=== PATIENT | female | born 1945 | race Caucasian/White ===

== ENCOUNTER → 2017-01-11 | Outpatient (CLI) | payer MEDICARE ==
[~2017-01-11] MED LIST: ASPI81TA2 PO; IOHEXOL 240 MG/ML 50ML VIAL. ONE; IOHEXOL 300 MG/ML 75 ML VIAL. IV ONE; LISI10TA2 PO
[2017-01-11 09:07] LABS: CREATININE 0.9 mg/dL (0.6-1.0); GFR 61.4
--- NOTE | 2017-01-11 11:59 | RAD ---
PROCEDURE CT abdomen pelvis with oral and intravenous contrast. HISTORY Left lower quadrant pain. Palpable lump on left side. TECHNIQUE After administration of oral and intravenous contrast, 75 milliliters Omnipaque 300, CT of the abdomen pelvis was performed. Exposure: One or more of the following individualized dose reduction techniques were utilized for this examination: 1. Automated exposure control. 2. Adjustment of the mA and/or kV according to patient size. 3. Use of iterative reconstruction technique. COMPARISON None available. FINDINGS Images of lower chest demonstrate a large retrocardiac hernia. The orientation of herniated stomach, incompletely visualized, raises possibility of organoaxial volvulus. The liver demonstrates presence of several small, subcentimeter low-density lesions, not adequately characterized on this examination. Spleen, pancreas, gallbladder, and bilateral adrenal glands are unremarkable. Bilateral kidneys enhance symmetrically. Coarse calcification is seen involving the junction of the pancreatic body and tail. No bowel obstruction or inflammation is appreciated. No free air or free fluid is seen in the abdomen or pelvis. Urinary bladder is unremarkable. No inguinal or ventral hernia is identified. Aortic atherosclerosis is seen. There is grade 2 spondylolisthesis at L5-S1 from pars defects. IMPRESSION 1. No acute abnormality identified in the abdomen or pelvis. 2. There is a large retrocardiac hernia containing herniated stomach. Orientation of the stomach raises possibility of organo-axial volvulus. There is no evidence of obstruction as oral contrast is seen within the small bowel. Electronically signed by: Owen Lucas MD (Jan 11, 2017 11:57:30)
== END | disposition home or self-care (01) ==
LOC: CT 08:28
PROVIDERS: ATTEND Family Medicine
DX: I10 Essential (primary) hypertension (principal); K46.9 Unspecified abdominal hernia without obstruction or gangrene; I70.0 Atherosclerosis of aorta; M43.17 Spondylolisthesis, lumbosacral region; J44.9 Chronic obstructive pulmonary disease, unspecified; J45.909 Unspecified asthma, uncomplicated; D68.318 Other hemorrhagic disorder due to intrinsic circulating anticoagulants, antibodies, or inhibitors; R60.9 Edema, unspecified; F17.200 Nicotine dependence, unspecified, uncomplicated
CPT/HCPCS: 36415; 74177; 82565; 84520; Q9966; Q9967

== ENCOUNTER → 2018-01-09 | Outpatient (CLI) | payer MEDICARE ==
[~2018-01-09] MED LIST changes: +ASPI-630 PO; -ASPI81TA2 PO; -IOHEXOL 240 MG/ML 50ML VIAL. ONE; -IOHEXOL 300 MG/ML 75 ML VIAL. IV ONE
--- NOTE | 2018-01-10 09:59 | RAD ---
DATE: 01/09/2018 EXAM: MAMMO CALLI SCREENING BILATERAL HISTORY: Routine screening COMPARISON: 07/25/2016, 08/01/2016. This study was interpreted with the benefit of Computerized Aided Detection (CAD). The breast parenchyma is heterogeneously dense, which could reduce sensitivity of mammography. Breast parenchyma level C. FINDINGS: 2-D and 3-D tomosynthesis imaging was performed in CC and MLO projections. There has been an interval breast biopsy in the upper outer quadrant of the right breast with a biopsy marker evident. Reportedly the results were benign. The fibroglandular densities in both breasts are quite dense and heterogeneous. No new or enlarging breast densities are seen. There are scattered microcalcifications in both breasts. No suspicious microcalcifications have developed. IMPRESSION: 1. Postbiopsy changes in the right. 2. Otherwise stable mammograms without evidence of malignancy. BI-RADS CATEGORY: 2 BENIGN FINDING(S) RECOMMENDED FOLLOW-UP: 12M 12 MONTH FOLLOW-UP PQRS compliance statement: Patient information was entered into a reminder system with a target due date for the next mammogram. Mammography is a sensitive method for finding small breast cancers, but it does not detect them all and is not a substitute for careful clinical examination. A negative mammogram does not negate a clinically suspicious finding and should not result in delay in biopsying a clinically suspicious abnormality. "Our facility is accredited by the [employer] Mammography Program."
== END | disposition home or self-care (01) ==
LOC: MAMMO 12:55
PROVIDERS: ATTEND Specialist
DX: Z12.31 Encounter for screening mammogram for malignant neoplasm of breast (principal)
CPT/HCPCS: 77063; 77067

== ENCOUNTER 2018-07-04 09:08 | Observation (INO) | payer MEDICARE ==
[~2018-07-04] VITALS: Ht 162.6 cm; Wt 61.2 kg
--- NOTE | 2018-07-04 09:21 | EKG ---
[address] [address] Test Date: 2018-07-04 Test Time: 09:12:03 Pat Name: SHANT DIEGO Department: Room: Gender: F Foot Doctor: : 1945 Requested By: OSMAN QIU Order Number: [id number] Reading MD: Pavan Mcdonnell Measurements Intervals [place] Rate: 69 P: 5 VT: 148 QRS: 8 QRSD: 126 T: 80 QT: 446 QTc: 480 Interpretive Statements SINUS RHYTHM NON SPECIFIC INTRAVENTRICULAR BLOCK ABNORMAL ECG Electronically Signed On 07-09-2018 11:45:25 CDT by Pavan Mcdonnell
[2018-07-04] MEDS ORDERED: NITROGLYCERIN SUBLINGUAL 0.4 MG BOTTLE OF 25. SL PRN (09:30)
[2018-07-04 09:39] LABS: BASO # 0.1 x10^3/uL (0.0-0.2); BASO % 1 % (0-3); EOS # 0.1 x10^3/uL (0.0-0.7); EOS % 2 % (0-3); HEMATOCRIT 44.5 % (36.0-47.0); HEMOGLOBIN 14.9 g/dL (12.0-15.5); LYMPH # 2.4 x10^3/uL (1.0-4.8); LYMPH % 39 % (24-48); MEAN CORPUSCULAR HEMOGLOBIN 30 pg (25-35); MEAN CORPUSCULAR HGB CONC 33 g/dL (31-37); MEAN CORPUSCULAR VOLUME 89 fL (79-100); MONO # 0.7 x10^3/uL (0.0-1.1); MONO % 12 % (0-9); NEUT % 47 % (31-73); PLATELET COUNT 253 x10^3/uL (140-400); RED BLOOD COUNT 5.01 x10^6/uL (3.50-5.40); RED CELL DISTRIBUTION WIDTH 14.3 % (11.5-14.5); WHITE BLOOD COUNT 6.3 x10^3/uL (4.0-11.0)
--- NOTE | 2018-07-04 09:45 | RAD ---
Exam: AP portable chest History: Chest pain and palpitations. Comparison: None. Findings: The heart and mediastinal structures are within normal limits for size. Lungs are without infiltrate. No pleural effusion or pneumothorax is identified. Median sternotomy wires are present. Aortic atherosclerosis is seen. Moderate hiatal hernia is seen. Impression: 1. No acute cardiopulmonary process. Electronically signed by: Owen Lucas MD (07/04/2018 9:41 AM) [place] [id number]
[2018-07-04 09:58] LABS: ALBUMIN 4.2 g/dL (3.4-5.0); ALBUMIN/GLOBULIN RATIO 1.3 (1.0-1.7); CALCIUM 9.7 mg/dL (8.5-10.1); CREATININE 0.8 mg/dL (0.6-1.0); GFR 70.1; MAGNESIUM 2.5 mg/dL (1.8-2.4); TOTAL BILIRUBIN 0.8 mg/dL (0.2-1.0); TOTAL PROTEIN 7.4 g/dL (6.4-8.2)
[2018-07-04 10:00] LABS: POTASSIUM 4.3 mmol/L (3.5-5.1)
--- NOTE | 2018-07-04 10:25 | PHYS DOC ---
Past History Past Medical History: Asthma, CAD, High Cholesterol, Hypertension Past Surgical History: Coronary Bypass Surgery, Hysterectomy, Other Alcohol Use: None Drug Use: None Adult General Chief Complaint Chief Complaint: CHEST PAIN HPI HPI Patient is a 72 year old female who presents with complaining of chest pain. Patient complaining of sudden onset of substernal chest pain since 8:30 today as a constant pain with radiation to her neck and lower jaw as a discomfort feeling like alternating in her chest associated with shortness of breath and lightheadedness and near syncope without nausea and focal neuro deficit. Patient rated her pain 6/10 and states the pain getting force with movement. Patient had history of CABG in 2001 and seen her dial refinisher about 5 months ago. Patient had history of hypertension and dyslipidemia and family history of coronary artery disease and denies smoking and having history of diabetes mellitus. Patient took aspirin at home today. Review of Systems Review of Systems Constitutional: Denies fever or chills [] Eyes: Denies change in visual acuity, redness, or eye pain [] HENT: Denies nasal congestion or sore throat [] Respiratory: Denies cough or shortness of breath [] Cardiovascular: No additional information not addressed in HPI [] GI: Denies abdominal pain, nausea, vomiting, bloody stools or diarrhea [] : Denies dysuria or hematuria [] Musculoskeletal: Denies back pain or joint pain [] Integument: Denies rash or skin lesions [] Neurologic: Denies headache, focal weakness or sensory changes [] Endocrine: Denies polyuria or polydipsia [] All other systems were reviewed and found to be within normal limits, except as documented in this note. Current Medications Current Medications Current Medications Medications (Trade) Dose Ordered Sig/Idania Start Time Stop Time Status Last Admin Dose Admin Nitroglycerin (Nitrostat) 0.4 mg PRN Q5MIN PRN 07/04/18 09:30 07/05/18 09:29 07/04/18 09:30 0.4 MG Allergies Allergies Allergies Coded Allergies Type Severity Reaction Last Updated Verified No Known Drug Allergies 01/11/17 No Physical Exam Physical Exam Constitutional: Well developed, well nourished, mild distress, non-toxic appearance. [] HENT: Normocephalic, atraumatic Eyes: PERRLA, EOMI, conjunctiva normal, no discharge. [] Neck: Normal range of motion, no tenderness, supple, no stridor. [] Cardiovascular:Heart rate regular rhythm, no murmur [] Lungs & Thorax: Bilateral breath sounds clear to auscultation [] Abdomen: Bowel sounds normal, soft, no tenderness, no masses, no pulsatile masses. [] Skin: Warm, dry, no erythema, no rash. [] Back: No tenderness, no CVA tenderness. [] Extremities: No tenderness, no cyanosis, no clubbing, ROM intact, no edema. [] Neurologic: Alert and oriented X 3, normal motor function, normal sensory function, no focal deficits noted. [] Psychologic: Affect anxious, judgement normal, mood normal. [] Current Patient Data Vital Signs Vital Signs Date Time Temp Pulse Resp B/P (MAP) Pulse Ox O2 Delivery O2 Flow Rate FiO2 07/04/18 09:47 62 16 150/75 (100) 98 Room Air 07/04/18 09:10 98.3 Lab Results Laboratory Tests Test 07/04/18 09:25 White Blood Count 6.3 x10^3/uL (4.0-11.0) Red Blood Count 5.01 x10^6/uL (3.50-5.40) Hemoglobin 14.9 g/dL (12.0-15.5) Hematocrit 44.5 % (36.0-47.0) Mean Corpuscular Volume 89 fL (79-100) Mean Corpuscular Hemoglobin 30 pg (25-35) Mean Corpuscular Hemoglobin Concent 33 g/dL (31-37) Red Cell Distribution Width 14.3 % (11.5-14.5) Platelet Count 253 x10^3/uL (140-400) Neutrophils (%) (Auto) 47 % (31-73) Lymphocytes (%) (Auto) 39 % (24-48) Monocytes (%) (Auto) 12 % (0-9) H Eosinophils (%) (Auto) 2 % (0-3) Basophils (%) (Auto) 1 % (0-3) Neutrophils # (Auto) 3.0 x10^3uL (1.8-7.7) Lymphocytes # (Auto) 2.4 x10^3/uL (1.0-4.8) Monocytes # (Auto) 0.7 x10^3/uL (0.0-1.1) Eosinophils # (Auto) 0.1 x10^3/uL (0.0-0.7) Basophils # (Auto) 0.1 x10^3/uL (0.0-0.2) Prothrombin Time 9.9 SEC (9.4-11.4) Prothrombin Time INR 1.0 (0.9-1.1) Sodium Level 140 mmol/L (136-145) Potassium Level 4.3 mmol/L (3.5-5.1) Chloride Level 105 mmol/L (98-107) Carbon Dioxide Level 23 mmol/L (21-32) Anion Gap 12 (6-14) Blood Urea Nitrogen 15 mg/dL (7-20) Creatinine 0.8 mg/dL (0.6-1.0) Estimated GFR (Cockcroft-Gault) 70.1 BUN/Creatinine Ratio 19 (6-20) Glucose Level 93 mg/dL (70-99) Calcium Level 9.7 mg/dL (8.5-10.1) Magnesium Level 2.5 mg/dL (1.8-2.4) H Total Bilirubin 0.8 mg/dL (0.2-1.0) Aspartate Amino Transferase (AST) 34 U/L (15-37) Alanine Aminotransferase (ALT) 35 U/L (14-59) Alkaline Phosphatase 78 U/L (46-116) Creatine Kinase 105 U/L (26-192) Troponin I Quantitative < 0.017 ng/mL (0-0.055) AM-Cue-P-Type Natriuretic Peptide 175 pg/mL (0-124) H Total Protein 7.4 g/dL (6.4-8.2) Albumin 4.2 g/dL (3.4-5.0) Albumin/Globulin Ratio 1.3 (1.0-1.7) Lipase 189 U/L (73-393) EKG EKG EKG interpreted by me. EKG at 0912 showed normal sinus rhythm at rate of 69, nonspecific intraventricular block, no acute ST and T-wave abnormalities[] Radiology/Procedures Radiology/Procedures [address] [address] IMAGING REPORT Signed PATIENT: SHANT DIEGO ACCOUNT: [id number] : 1945 LOCATION: ER AGE: 72 SEX: F EXAM STATUS: REG ER ORD. PHYSICIAN: OSMAN QIU MD REASON: chest pain PROCEDURE: PORTABLE CHEST 1V Exam: AP portable chest History: Chest pain and palpitations. Comparison: None. Findings: The heart and mediastinal structures are within normal limits for size. Lungs are without infiltrate. No pleural effusion or pneumothorax is identified. Median sternotomy wires are present. Aortic atherosclerosis is seen. Moderate hiatal hernia is seen. Impression: 1. No acute cardiopulmonary process. Electronically signed by: Owen Rosenbaum MD (07/04/2018 9:41 AM) [facility] DICTATED AND SIGNED BY: OWEN ROSENBAUM MD DATE: 07/04/18939 CC: OSMAN QIU MD; NEERAJ JOHNSON MD ~ Course & Med Decision Making Course & Med Decision Making Pertinent Labs and Imaging studies reviewed. (See chart for details) Evaluation of patient in ER showed 72-year-old female patient with multiple cardiac risk factors complaining of chest pain for the last couple of hours. Patient was anxious in ER and treated with nitroglycerin and documented on feels better. EKG and labs was unremarkable. Because of multiple cardiac risk factors plan to admit patient for chest pain evaluation. Dr. Nicole accepted admission at 1011. Dragon Disclaimer Dragon Disclaimer This electronic medical record was generated, in whole or in part, using a voice recognition dictation system. Departure Departure: Impression: Primary Impression: Anxiety Disposition: ADMITTED INPATIENT (at 1016) Admitting Physician: Other (Dr. Nicole accepted admission at 1011) Condition: IMPROVED Referrals: NEERAJ JOHNSON MD (PCP) OSMAN QIU MD Jul 04, 2018 10:25
[2018-07-04] MEDS ORDERED: LORazepam 2 MG/ML VIAL IV ONE (10:45)
[2018-07-04 11:45] VITALS: BP 125/82
[2018-07-04] MEDS ORDERED: FLUT50DI IH (12:40)
[2018-07-04] MEDS ORDERED: OMEG1CAP38 PO (12:40)
[2018-07-04] MEDS ORDERED: MULT1TAB52 PO (12:40)
[2018-07-04] MEDS ORDERED: FLUT1DIS3 IH (12:40)
[2018-07-04] MEDS ORDERED: SIMV80TA7 PO (12:40)
--- NOTE | 2018-07-04 15:59 | PDOC1 ---
History of Present Illness History of Present Illness 72-year-old female brought to the emergency department earlier today by her spouse with fluttering in her chest and jaw pain. Patient has history of coronary artery disease she follows with Dr. Zendejas. She 's had stents in the past and had a two-vessel CABG in 2001, last saw dna sequencing associate approximately 5 months ago. Patient states that this morning after making breakfast and while getting ready to exercise walking through the house she developed a sudden onset of fluttering in her upper chest with severe jaw pain. She denies any chest pain dyspnea diaphoresis nausea or dizziness, the discomfort caused her to have to sit down and she called out to her spouse for assistance. She reports that those symptoms persisted until she received nitroglycerin sublingually times one after arriving to the emergency department. In the emergency department her EKG was reportedly normal sinus rhythm with a nonspecific intraventricular block no ST or T changes. Portable chest x-ray was unremarkable and first set of cardiac enzymes negative. Due to her medical history and symptoms she was admitted to the telemetry floor for observation and cardiology evaluation. I find the patient lying in bed staring out the window in no apparent distress. She is very pleasant and reports that her chief complaint symptoms have not returned. She has remained asymptomatic and denies any current questions or complaints. Chief Complaint: CHEST PAIN Allergies: Coded Allergies: No Known Drug Allergies (Unverified , 01/11/17) Past Medical History Cardiac: CAD, HTN, hyperipidemia Pulmonary: Asthma Past Surgical History: CABG (two-vessel, 2001), Hysterectomy Family History: No pertinent hx Past Social History Smoke: No Alcohol: none Drugs: None Lives: with Family Domestic Violence: Neg Review of Systems Review Of Systems Fourteen system , review of systems has been reviewed. See HPI for pertinent positives and negative responses, other [place] all other systems are negative, non pertinent or non contributory Constitutional: No: Fever, Chills, Sweats Eyes: No: Decreased vision, Eye Pain ENT: No: Ear pain, Nose pain Respiratory: No: Cough, Shortness of breath, SOB with excertion, Wheezing Cardiovascular: No: Palpitations, Paroxysmal Noc. Dyspnea, Edema Gastrointestinal: No: Nausea, Vomiting, Abdominal Pain Genitourinary: No: Dysuria, Flank Pain Musculoskeletal: No: Gait Disturbance, Joint Swelling SKIN: No: No Rashes, Diaphoretic Neurological: No: Headaches, Impaired Coord/balance, Memory Loss Medications Current Medications Nitroglycerin (Nitrostat) 0.4 mg PRN Q5MIN PRN SL CP RATING > 1/10 Last administered on 07/04/18at 09:30; Start 07/04/18 at 09:30; Stop 07/05/18 at 09:29 Lorazepam (Ativan) 0.5 mg 1X ONCE IV Last administered on 07/04/18at 10:32; Start 07/04/18 at 10:45; Stop 07/04/18 at 10:46; Status DC Active Scripts Active Reported Flovent 50MCG Diskus (Fluticasone Propionate) 50 Mcg Disk.w.dev 50 Mcg IH DAILY LAST DOSE GIVEN: DATE: TIME: NEXT DOSE DUE: DATE: TIME: Baxter 3 Fish Oil Softgel (Baxter-3 Fatty Acids/Fish Oil) 1 Each Capsule.dr 1 Each PO DAILY LAST DOSE GIVEN: DATE: TIME: NEXT DOSE DUE: DATE: TIME: Multivitamins (Multivitamin) 1 Each Tablet 1 Tab PO DAILY LAST DOSE GIVEN: DATE: TIME: NEXT DOSE DUE: DATE: TIME: Advair 250-50 Diskus (Fluticasone/Salmeterol) 1 Each Disk.w.dev 1 Puff IH DAILY LAST DOSE GIVEN: DATE: TIME: NEXT DOSE DUE: DATE: TIME: Simvastatin 80 Mg Tablet 1 Tab PO QHS LAST DOSE GIVEN: DATE: TIME: NEXT DOSE DUE: DATE: TIME: Aspirin 81 Mg Tab.chew 81 Mg PO DAILY LAST DOSE GIVEN: DATE: TIME: NEXT DOSE DUE: DATE: TIME: Lisinopril 10 Mg Tablet 1 Tab PO DAILY LAST DOSE GIVEN: DATE: TIME: NEXT DOSE DUE: DATE: TIME: Exam Vital Signs Vital Signs Date Time Temp Pulse Resp B/P (MAP) Pulse Ox O2 Delivery O2 Flow Rate FiO2 07/04/18 11:45 97.6 58 20 125/82 (96) 98 Room Air General Appearance: Alert, Oriented X3, Cooperative, No acute distress HEENT: Atraumatic, PERRLA, EOMI, Mucous membr. moist/pink Respiratory: Clear to auscultation, Normal air movement Heart: Normal S1, Normal S2, No murmurs Cardiac: CAD, HTN, hyperipidemia Abdominal: Soft, No tenderness Extremities: No clubbing, No cyanosis, No edema Neuro: Normal speech, Strength at 5/5 X4 ext, Normal tone, Cranial nerves 3-12 NL Psych/Mental Status: Mental status NL, Mood NL Assessment/Plan Assessment/Plan Chest pain equivalent with history of coronary artery disease History of asthma, hypertension, hyperlipidemia We will continue home meds follow cardiac enzymes cardiology has been consulted. COURSE Allergies Coded Allergies Type Severity Reaction Last Updated Verified No Known Drug Allergies 01/11/17 No Laboratory Tests Test 07/04/18 09:25 07/04/18 13:29 White Blood Count 6.3 x10^3/uL (4.0-11.0) Red Blood Count 5.01 x10^6/uL (3.50-5.40) Hemoglobin 14.9 g/dL (12.0-15.5) Hematocrit 44.5 % (36.0-47.0) Mean Corpuscular Volume 89 fL (79-100) Mean Corpuscular Hemoglobin 30 pg (25-35) Mean Corpuscular Hemoglobin Concent 33 g/dL (31-37) Red Cell Distribution Width 14.3 % (11.5-14.5) Platelet Count 253 x10^3/uL (140-400) Neutrophils (%) (Auto) 47 % (31-73) Lymphocytes (%) (Auto) 39 % (24-48) Monocytes (%) (Auto) 12 % (0-9) Eosinophils (%) (Auto) 2 % (0-3) Basophils (%) (Auto) 1 % (0-3) Neutrophils # (Auto) 3.0 x10^3uL (1.8-7.7) Lymphocytes # (Auto) 2.4 x10^3/uL (1.0-4.8) Monocytes # (Auto) 0.7 x10^3/uL (0.0-1.1) Eosinophils # (Auto) 0.1 x10^3/uL (0.0-0.7) Basophils # (Auto) 0.1 x10^3/uL (0.0-0.2) Prothrombin Time 9.9 SEC (9.4-11.4) Prothromb Time International Ratio 1.0 (0.9-1.1) Sodium Level 140 mmol/L (136-145) Potassium Level 4.3 mmol/L (3.5-5.1) Chloride Level 105 mmol/L (98-107) Carbon Dioxide Level 23 mmol/L (21-32) Anion Gap 12 (6-14) Blood Urea Nitrogen 15 mg/dL (7-20) Creatinine 0.8 mg/dL (0.6-1.0) Estimated GFR (Cockcroft-Gault) 70.1 BUN/Creatinine Ratio 19 (6-20) Glucose Level 93 mg/dL (70-99) Calcium Level 9.7 mg/dL (8.5-10.1) Magnesium Level 2.5 mg/dL (1.8-2.4) Total Bilirubin 0.8 mg/dL (0.2-1.0) Aspartate Amino Transf (AST/SGOT) 34 U/L (15-37) Alanine Aminotransferase (ALT/SGPT) 35 U/L (14-59) Alkaline Phosphatase 78 U/L (46-116) Creatine Kinase 105 U/L (26-192) Troponin I Quantitative < 0.017 ng/mL (0-0.055) 0.020 ng/mL (0-0.055) YW-Glk-E-Type Natriuretic Peptide 175 pg/mL (0-124) Total Protein 7.4 g/dL (6.4-8.2) Albumin 4.2 g/dL (3.4-5.0) Albumin/Globulin Ratio 1.3 (1.0-1.7) Lipase 189 U/L (73-393) Current Medications Medications (Trade) Dose Ordered Sig/Idania Route PRN Reason Start Time Stop Time Status Last Admin Dose Admin Nitroglycerin (Nitrostat) 0.4 mg PRN Q5MIN PRN SL CP RATING > 1/10 07/04/18 09:30 07/05/18 09:29 07/04/18 09:30 Lorazepam (Ativan) 0.5 mg 1X ONCE IV 07/04/18 10:45 07/04/18 10:46 DC 07/04/18 10:32 Orders Procedure Category Date Status Time Continuous Pulse ER 07/04/18 Transmitted Oximetry 09:17 Saline Lock ER 07/04/18 Transmitted 09:17 Oxygen Delivery ER 07/04/18 Transmitted 09:17 Cbc W Autodiff LAB 07/04/18 Complete 09:17 Troponin I LAB 07/04/18 Complete 09:17 Protime LAB 07/04/18 Complete 09:17 Creatine Kinase LAB 07/04/18 Complete 09:17 Lipase LAB 07/04/18 Complete 09:17 Magnesium LAB 07/04/18 Complete 09:17 Nt-Pro Bnp LAB 07/04/18 Complete 09:17 Portable Chest 1v RAD 07/04/18 Resulted 09:17 Nitroglycerin PHA 07/04/18 In Process Sublingual (Nitrostat) 09:30 12 Lead Ekg EKG 07/04/18 Complete 09:17 Comprehensive LAB 07/04/18 Complete Metabolic Panel 09:17 Pulse Oximetry: KAYLAH 07/04/18 In Process Standing Order 09:17 [place] Order ADT 07/04/18 Transmitted 10:16 Code Status CODE 07/04/18 Transmitted 10:16 Vital Signs, Per KAYLAH 07/04/18 In Process Protocol 10:16 Cardiac DIET 07/04/18 Transmitted Breakfast Troponin I LAB 07/04/18 Complete 13:16 Troponin I LAB 07/04/18 Logged 16:16 Lorazepam (Ativan) PHA 07/04/18 Complete 10:45 Admit Orders ADT 07/04/18 Transmitted Consult Physician By CONS 07/04/18 Transmitted Name 12:55 Vital Signs Date Time Temp Pulse Resp B/P (MAP) Pulse Ox O2 Delivery O2 Flow Rate FiO2 07/04/18 11:45 97.6 58 20 125/82 (96) 98 Room Air JOSEFA DIEZ DO Jul 04, 2018 15:59
[2018-07-04 16:27] VITALS: BP 113/71
--- NOTE | 2018-07-04 16:46 | NUR ---
Pt arrived on unit via gurney accompanied by ems and spouse. Pt vitals, head to toe assessment, past medical hx, and current meds documented. Pt given unit routines.
--- NOTE | 2018-07-04 18:05 | CONS ---
DATE OF CONSULTATION: 07/04/2018 REASON FOR CONSULTATION: Chest pain. HISTORY OF PRESENT ILLNESS: The patient is a pleasant 72-year-old woman with past medical history of coronary artery disease, status post 2-vessel bypass remotely who follows with my partner, Dr. Cat, for routine Cardiology care. She has been in her usual state of health and reports over the last several months approximately about every 6 weeks or so has had episodes of palpitations and lightheadedness, which prompted her to rest from her activity. These episodes usually occur when she is active such as vacuuming her house. Unfortunately, today, she had a very more severe episode, which started with some palpitations in her chest, subsequently led to severe chest pain in her torso as well as jaw pain, which prompted her to seek medical attention. Upon arrival to the ER, she was noted to have normal blood pressure and vital signs and was given nitroglycerin, Ativan, which helped to resolve some of her symptoms. Her initial enzymes were unremarkable. Her initial EKG demonstrated sinus rhythm with left bundle branch block. PAST MEDICAL HISTORY: 1. Coronary artery disease, status post 2-vessel bypass. 2. Hypertension. 3. Dyslipidemia. SOCIAL HISTORY: The patient denies any alcohol, tobacco or illicit drug use. FAMILY HISTORY: Noncontributory. ALLERGIES: No known drug allergies. CURRENT CARDIOVASCULAR MEDICATIONS: As follows: 1. Fish oil 1000 mg daily. 2. Aspirin 81 mg daily. 3. Lisinopril 10 mg daily. 4. Simvastatin 80 mg p.o. at bedtime. REVIEW OF SYSTEMS: Negative for 10 out of 14 systems reviewed, unless otherwise mentioned above in HPI. PHYSICAL EXAMINATION: VITAL SIGNS: Afebrile, 66, 20, blood pressure 170/99 upon initial arrival with repeat blood pressures throughout the day within normal limits. GENERAL: She is alert and oriented, in mild distress related to her significant anxiety from the event earlier. HEAD AND NECK: Unremarkable. She is a thin-appearing with a normal BMI. HEART: Regular rate and rhythm without murmurs, rubs or gallops. LUNGS: Clear to auscultation bilaterally. ABDOMEN: Soft, nontender, nondistended without any murmurs, rubs or gallops. EXTREMITIES: No clubbing, cyanosis or edema; 2+ radial and dorsalis pedis pulses. NEUROLOGIC: No focal deficits. MUSCULOSKELETAL: No trauma. DIAGNOSTIC STUDIES: Cardiac enzymes negative x 2. EKG demonstrates sinus rhythm of left bundle branch block. BNP is normal at 175. Basic metabolic panel and CBC are within normal limits. IMPRESSION: 1. Atypical chest pain. 2. Coronary artery disease, status post 2-vessel bypass. 3. Hypertension. Different diagnosis is broad. This could be related to palpitations leading to possible spasm versus tachyarrhythmia leading to some discomfort. She did also have an episode of hypertensive urgency. RECOMMENDATIONS: I had a long discussion with the patient regarding various approaches to treatment and evaluation. Given her risk factors and significant discomfort, we will plan to rule out any occult ischemia with a treadmill myocardial perfusion study. We will also obtain a 2-week event monitor after which we will consider an outpatient implantable loop recorder as necessary depending on her symptoms. Thank you for this consultation. BHAVANA ORANTES MD DR: KARLA/tricia JOB#: [id number] / [id number]
[2018-07-04 18:51] VITALS: BP 113/71
[2018-07-04] MEDS: BUDESONIDE 0.5 MG/2 ML NEBU NEB SCH (20:00)
[2018-07-04] MEDS: ALBUTEROL SULFATE 2.5 MG/3 ML NEBU. NEB SCH (20:00)
[2018-07-04] MEDS ORDERED: SIMVASTATIN 40 MG TABLET. PO SCH (21:00)
[2018-07-04 22:04] VITALS: BP 110/70
[2018-07-05 05:04] VITALS: BP 132/77
[2018-07-05] MEDS: ALBUTEROL SULFATE 2.5 MG/3 ML NEBU. NEB SCH ×3 (05:35→15:15)
[2018-07-05] MEDS: BUDESONIDE 0.5 MG/2 ML NEBU NEB SCH (08:00)
[2018-07-05] MEDS ORDERED: MULTIVITAMIN with MINERAL TABLET. PO SCH (09:00)
[2018-07-05] MEDS ORDERED: FLUTICASONE 50MCG/NASAL SPRAY 16GM BOTTLE. NS SCH (09:00)
[2018-07-05] MEDS ORDERED: NON FORMULARY ITEM (Fluticasone/Salmeterol (Advair 250-50 Diskus) 1 PUFF) IH SCH (09:00)
[2018-07-05] MEDS ORDERED: NON FORMULARY ITEM (Fluticasone Propionate (Flovent 50MCG Diskus) 50 MCG) IH SCH (09:00)
[2018-07-05] MEDS ORDERED: OMEGA-3 FATTY ACIDS/FISH OIL 1,000 MG CAPSULE. PO SCH (09:00)
[2018-07-05] MEDS ORDERED: LISINOPRIL 10 MG TABLET PO SCH (09:00)
[2018-07-05] MEDS ORDERED: ASPIRIN 81 MG TAB.CHEW PO SCH (09:00)
--- NOTE | 2018-07-05 09:25 | PDOC ---
PROGRESS NOTES Diagnosis Problem Problems Medical Problems: (1) Anxiety Status: Acute (2) Chest pain Status: Acute Assessment Problems Medical Problems: (1) Anxiety Status: Acute (2) Chest pain Status: Acute 1. chest pain - [place] ruled out. MPI this am. continue medical therapy and RF reduction. 2. Coronary artery disease, status post 2-vessel bypass. Continue medical mgmt. home if stress test is normal. 3. Hypertension.- controlled. last echo with LVEF 55%. 4. hyperlipidemia, continue statin, check lipids. 5. palpitations - no significant arrhythmias. consider MCT as outpatient. Subjective better this am. no chest pain. no dyspnea. seen in stress lab. Objective Vital Signs Date Time Temp Pulse Resp B/P (MAP) Pulse Ox O2 Delivery O2 Flow Rate FiO2 07/05/18 07:40 Room Air 07/05/18 05:04 97.6 57 20 132/77 (95) 99 Intake and Output 07/05/18 07:00 Intake Total 700 ml Output Total 600 ml Balance 100 ml Intake Oral 700 ml Output Urine Total 600 ml # Voids 2 Abdomen: Normal bowel sounds, Soft, No tenderness Heart: Regular rate, Normal S1, Normal S2 Extremities: No cyanosis, No edema, Normal pulses General: Alert, Oriented X3, Cooperative, No acute distress HEENT: Atraumatic, EOMI Lungs: Clear to auscultation, Normal air movement Neuro: Normal speech, Strength at 5/5 X4 ext Psych/Mental Status: Mental status NL, Mood NL Review of Relevant I have reviewed the following items cynthia (where applicable) has been applied. Labs Laboratory Tests Test 07/04/18 09:25 07/04/18 13:29 07/04/18 16:25 White Blood Count 6.3 x10^3/uL (4.0-11.0) Red Blood Count 5.01 x10^6/uL (3.50-5.40) Hemoglobin 14.9 g/dL (12.0-15.5) Hematocrit 44.5 % (36.0-47.0) Mean Corpuscular Volume 89 fL (79-100) Mean Corpuscular Hemoglobin 30 pg (25-35) Mean Corpuscular Hemoglobin Concent 33 g/dL (31-37) Red Cell Distribution Width 14.3 % (11.5-14.5) Platelet Count 253 x10^3/uL (140-400) Neutrophils (%) (Auto) 47 % (31-73) Lymphocytes (%) (Auto) 39 % (24-48) Monocytes (%) (Auto) 12 % (0-9) Eosinophils (%) (Auto) 2 % (0-3) Basophils (%) (Auto) 1 % (0-3) Neutrophils # (Auto) 3.0 x10^3uL (1.8-7.7) Lymphocytes # (Auto) 2.4 x10^3/uL (1.0-4.8) Monocytes # (Auto) 0.7 x10^3/uL (0.0-1.1) Eosinophils # (Auto) 0.1 x10^3/uL (0.0-0.7) Basophils # (Auto) 0.1 x10^3/uL (0.0-0.2) Prothrombin Time 9.9 SEC (9.4-11.4) Prothromb Time International Ratio 1.0 (0.9-1.1) Sodium Level 140 mmol/L (136-145) Potassium Level 4.3 mmol/L (3.5-5.1) Chloride Level 105 mmol/L (98-107) Carbon Dioxide Level 23 mmol/L (21-32) Anion Gap 12 (6-14) Blood Urea Nitrogen 15 mg/dL (7-20) Creatinine 0.8 mg/dL (0.6-1.0) Estimated GFR (Cockcroft-Gault) 70.1 BUN/Creatinine Ratio 19 (6-20) Glucose Level 93 mg/dL (70-99) Calcium Level 9.7 mg/dL (8.5-10.1) Magnesium Level 2.5 mg/dL (1.8-2.4) Total Bilirubin 0.8 mg/dL (0.2-1.0) Aspartate Amino Transf (AST/SGOT) 34 U/L (15-37) Alanine Aminotransferase (ALT/SGPT) 35 U/L (14-59) Alkaline Phosphatase 78 U/L (46-116) Creatine Kinase 105 U/L (26-192) Troponin I Quantitative < 0.017 ng/mL (0-0.055) 0.020 ng/mL (0-0.055) 0.019 ng/mL (0-0.055) UA-Laz-U-Type Natriuretic Peptide 175 pg/mL (0-124) Total Protein 7.4 g/dL (6.4-8.2) Albumin 4.2 g/dL (3.4-5.0) Albumin/Globulin Ratio 1.3 (1.0-1.7) Lipase 189 U/L (73-393) Medications Current Medications Nitroglycerin (Nitrostat) 0.4 mg PRN Q5MIN PRN SL CP RATING > 1/10 Last administered on 07/04/18at 09:30; Start 07/04/18 at 09:30; Stop 07/05/18 at 09:29 Lorazepam (Ativan) 0.5 mg 1X ONCE IV Last administered on 07/04/18at 10:32; Start 07/04/18 at 10:45; Stop 07/04/18 at 10:46; Status DC Lisinopril (Prinivil) 10 mg DAILY PO ; Start 07/05/18 at 09:00 Aspirin (Children'S Aspirin) 81 mg DAILY PO ; Start 07/05/18 at 09:00 Non-Formulary Medication (Fluticasone Propionate (Flovent 50MCG Diskus)) 50 mcg DAILY IH ; Start 07/05/18 at 09:00; Stop 07/05/18 at 09:00; Status DC Non-Formulary Medication (Fluticasone/ Salmeterol (Advair 250-50 Diskus)) 1 puff DAILY IH ; Start 07/05/18 at 09:00; Stop 07/05/18 at 09:00; Status DC Multivitamins/ Calcium (Thera-M Plus) 1 tab DAILY PO ; Start 07/05/18 at 09:00 Fish Oil (Fish Oil) 1,000 mg DAILY PO ; Start 07/05/18 at 09:00 Simvastatin (Zocor) 80 mg QHS PO Last administered on 07/04/18at 20:39; Start at 21:00 Budesonide (Pulmicort) 0.5 mg RTBID NEB ; Start 07/04/18 at 20:00 Albuterol Sulfate (Ventolin) 2.5 mg RTQID NEB ; Start 07/04/18 at 20:00 Fluticasone Propionate (Flonase) 2 spray DAILY NS ; Start 07/05/18 at 09:00 Active Scripts Active Reported Flovent 50MCG Diskus (Fluticasone Propionate) 50 Mcg Disk.w.dev 50 Mcg IH DAILY LAST DOSE GIVEN: DATE: TIME: NEXT DOSE DUE: DATE: TIME: [place] 3 Fish Oil Softgel ([place]-3 Fatty Acids/Fish Oil) 1 Each Capsule.dr 1 Each PO DAILY LAST DOSE GIVEN: DATE: TIME: NEXT DOSE DUE: DATE: TIME: Multivitamins (Multivitamin) 1 Each Tablet 1 Tab PO DAILY LAST DOSE GIVEN: DATE: TIME: NEXT DOSE DUE: DATE: TIME: Advair 250-50 Diskus (Fluticasone/Salmeterol) 1 Each Disk.w.dev 1 Puff IH DAILY LAST DOSE GIVEN: DATE: TIME: NEXT DOSE DUE: DATE: TIME: Simvastatin 80 Mg Tablet 1 Tab PO QHS LAST DOSE GIVEN: DATE: TIME: NEXT DOSE DUE: DATE: TIME: Aspirin 81 Mg Tab.chew 81 Mg PO DAILY LAST DOSE GIVEN: DATE: TIME: NEXT DOSE DUE: DATE: TIME: Lisinopril 10 Mg Tablet 1 Tab PO DAILY LAST DOSE GIVEN: DATE: TIME: NEXT DOSE DUE: DATE: TIME: Vitals/I & O Vital Sign - Last 24 Hours 07/04/18 07/04/18 07/04/18 07/04/18 09:30 09:30 09:47 10:18 Pulse 59 60 62 57 Resp 16 16 16 B/P (MAP) 170/99 170/79 (109) 150/75 (100) 136/86 (103) Pulse Ox 100 98 99 O2 Delivery Room Air Room Air Room Air 07/04/18 07/04/18 07/04/18 07/04/18 10:47 11:45 16:27 18:51 Temp 97.6 97.6 97.6 Pulse 54 58 66 66 Resp 16 20 20 18 B/P (MAP) 122/74 (90) 125/82 (96) 113/71 (85) 113/71 (85) Pulse Ox 100 98 97 97 O2 Delivery Room Air Room Air Room Air Room Air 07/04/18 07/04/18 07/05/18 07/05/18 19:20 22:04 05:04 07:40 Temp 97.5 97.6 Pulse 52 57 Resp 20 20 B/P (MAP) 110/70 (83) 132/77 (95) Pulse Ox 96 99 O2 Delivery Room Air Room Air Room Air Room Air Intake and Output 07/04/18 07/04/18 07/05/18 15:00 23:00 07:00 Intake Total 200 ml 500 ml 0 ml Output Total 600 ml Balance 200 ml 500 ml -600 ml RANDI MUELLER APRN Jul 05, 2018 09:25
[2018-07-05 11:23] VITALS: BP 100/63
--- NOTE | 2018-07-05 13:13 | RAD ---
MR#: [id number] Date of Study: 07/05/2018 Ordering Physician: BHAVANA ORANTES, Referring Physician: WILLIAMS ORTIZ Tech: RT Jessica Howell) (N) APPROVED REPORT Test Type: Exercise Stress Nurse/Tech: RT Dante (Jossie) (N) Test Indications: chest pain Cardiac History: CABG 2 bypass 2002 Medications: see EHR Medical History: see EHR Resting ECG: SR DRWP no acute changes Resting Heart Rate: 59 bpm Resting Blood Pressure: 121/66mmHg Pretest Chest Pain: None Nurse/Tech Notes Consent: The procedure was explained to the patient in lay terms. Informed consent was witnessed. Isaiah eout was entered into [employer]. History and Stress Test performed by RT Jessica Howell) (N) POST EXERCISE Reason for Termination: Fatigue, Dyspnea, Reached target heart rate Target HR: Yes Max HR: 125 bpm 85% of Maximum Predicted HR: 146 bpm Exercise duration: 7:30 min:sec, 3 Stage Exercise capacity: 10METs Max Blood Pressure: 160/74mmHg Chest Pain: No. INTERPRETATION Stress EKG Conclusion: Resting EKG shows sinus rhythm with nonspecific ST-T wave changes. The stress EKG showed no significant changes from baseline. No EKG evidence of stress-induced ischemia. Imaging Protocol IMAGE PROTOCOL: Rest Tc-99m/stress Tc-99m 1 day Rest: Stress: Viability: Radiopharm.Tc99m [id number] Sestamibi Dose10.6mCi 34.2mCi Duration 20min. 15min. Img Date 07/05/2018 07/05/2018 Inj-Img [id number]. 60min. Post-Injection Exercise: 1 minute Rest Admin Site:IV - Right AntecubitalAdministrator: RT Dante (Jossie)(N) Stress Admin Site: IV - Right AntecubitalAdministrator: RT Jessica Howell)(N) STRESS DATA End Diast. Vol.59.0mlAv. Heart Rate74.0bpm LVEDV index BSA1.0mlCardiac Output0.1L/min End Syst. Vol.14.0mlCO Index BSA3.3L/min LVESV index BSA0.0mlMyocardial Nttg250.0g Eject. Ilpdergn03.0% Stress Rates Pk. Fill Rate3.22EDV/secLVtime Pk. Fill 226.67msec Pk. Empty Rate4.70ESV/secLVtime Pk. Ccxgx730.31msec 1/3 Pk. Fill1.29EDV/sec Stress Scores Regional WT1.00Summed WT10.00 Regional WM0.00Summed WM6.00 LV Perfusion The stress scans show a septal apical defect. The rest scans show a septal apical defect. 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 No significant reversible ischemia is prese nt. Wall Motion Left ventricular systolic function appears normal. Ejection fraction is greater than 70%. 3 times a d ay is 0.86. LV Perf. Quant 17 Seg. SSS12.00 17 Seg. SRS15.00 17 Seg. SDS1.00 Stress Defect Extent (% LAD)29.40Rest Defect Extent (% LAD)44.40Rev. Defect Extent (% LAD)1.30 Stress Defect Extent (% LCX) 0.00Rest Defect Extent (% LCX)12.50Rev. Defect Extent (% LCX)0.00 Stress Defect Extent (% RCA)26.70Rest Defect Extent (% RCA)18.90Rev. Defect Extent (% RCA)6.70 Stress Defect Extent (% KALYN)22.00Rest Defect Extent (% KALYN)34.10Rev. Defect Extent (% KALYN)1.70 Conclusion 1. Good exercise tolerance with the patient walking for 7 minutes and 30 seconds on a Max protocol. 2. No chest pain reported with exertion. 3. Abnormal baseline EKG but no EKG evidence of stressed induced ischemia. 4. Nuclear imaging shows a septal apical infarct but no significant reversible ischemia. 5. LV systolic function is greater than 70% with no regional wall motion abnormalities. 6. Moderate to moderately low risk treadmill nuclear stress test. Signed by : Julien Martinez MD Electronically Approved : 07/05/2018 13:12:00
--- NOTE | 2018-07-05 15:40 | PDOC3 ---
Discharge Summary Visit Information Date of Admission: Jul 04, 2018 Date of Discharge: Jul 05, 2018 Admitting Diagnosis: chest pain atypical, history of coronary artery disease, Final Diagnosis Problems Medical Problems: (1) Anxiety Status: Acute (2) Chest pain Status: Acute Problems: (1) Chest pain (2) Anxiety (3) Hyperlipidemia (4) Hypertension (5) Atypical chest pain (6) History of coronary artery disease Brief Hospital Course Allergies Allergies Coded Allergies Type Severity Reaction Last Updated Verified No Known Drug Allergies 01/11/17 No Vital Signs Vital Signs Date Time Temp Pulse Resp B/P (MAP) Pulse Ox O2 Delivery O2 Flow Rate FiO2 07/05/18 11:23 97.3 68 20 100/63 (75) 99 Room Air Lab Results Laboratory Tests Test 07/04/18 09:25 07/04/18 13:29 07/04/18 16:25 White Blood Count 6.3 x10^3/uL (4.0-11.0) Red Blood Count 5.01 x10^6/uL (3.50-5.40) Hemoglobin 14.9 g/dL (12.0-15.5) Hematocrit 44.5 % (36.0-47.0) Mean Corpuscular Volume 89 fL (79-100) Mean Corpuscular Hemoglobin 30 pg (25-35) Mean Corpuscular Hemoglobin Concent 33 g/dL (31-37) Red Cell Distribution Width 14.3 % (11.5-14.5) Platelet Count 253 x10^3/uL (140-400) Neutrophils (%) (Auto) 47 % (31-73) Lymphocytes (%) (Auto) 39 % (24-48) Monocytes (%) (Auto) 12 % (0-9) Eosinophils (%) (Auto) 2 % (0-3) Basophils (%) (Auto) 1 % (0-3) Neutrophils # (Auto) 3.0 x10^3uL (1.8-7.7) Lymphocytes # (Auto) 2.4 x10^3/uL (1.0-4.8) Monocytes # (Auto) 0.7 x10^3/uL (0.0-1.1) Eosinophils # (Auto) 0.1 x10^3/uL (0.0-0.7) Basophils # (Auto) 0.1 x10^3/uL (0.0-0.2) Prothrombin Time 9.9 SEC (9.4-11.4) Prothromb Time International Ratio 1.0 (0.9-1.1) Sodium Level 140 mmol/L (136-145) Potassium Level 4.3 mmol/L (3.5-5.1) Chloride Level 105 mmol/L (98-107) Carbon Dioxide Level 23 mmol/L (21-32) Anion Gap 12 (6-14) Blood Urea Nitrogen 15 mg/dL (7-20) Creatinine 0.8 mg/dL (0.6-1.0) Estimated GFR (Cockcroft-Gault) 70.1 BUN/Creatinine Ratio 19 (6-20) Glucose Level 93 mg/dL (70-99) Calcium Level 9.7 mg/dL (8.5-10.1) Magnesium Level 2.5 mg/dL (1.8-2.4) Total Bilirubin 0.8 mg/dL (0.2-1.0) Aspartate Amino Transf (AST/SGOT) 34 U/L (15-37) Alanine Aminotransferase (ALT/SGPT) 35 U/L (14-59) Alkaline Phosphatase 78 U/L (46-116) Creatine Kinase 105 U/L (26-192) Troponin I Quantitative < 0.017 ng/mL (0-0.055) 0.020 ng/mL (0-0.055) 0.019 ng/mL (0-0.055) UF-Fvw-C-Type Natriuretic Peptide 175 pg/mL (0-124) Total Protein 7.4 g/dL (6.4-8.2) Albumin 4.2 g/dL (3.4-5.0) Albumin/Globulin Ratio 1.3 (1.0-1.7) Lipase 189 U/L (73-393) Brief Hospital Course 72-year-old female brought to the emergency department yesterday by her spouse with fluttering in her chest and jaw pain. Patient has history of coronary artery disease she follows with Dr. Zendejas. She 's had stents in the past and had a two-vessel CABG in 2001. Patient reports yesterday morning with minimal activity she developed sudden onset of fluttering in her upper chest with severe jaw pain. Those symptoms persisted until she received nitroglycerin sublingually times one after arriving to the emergency department. In the emergency department her EKG was reportedly normal sinus rhythm with a nonspecific intraventricular block no ST or T changes. Portable chest x-ray was unremarkable and 3 sets of cardiac enzymes negative. Due to her medical history and symptoms she was admitted to the telemetry floor for observation and cardiology evaluation. Nuclear stress test this morning was unremarkable, she will follow-up as an outpatient for echocardiogram and with cardiology for further outpatient workup. I find the patient lying in bed with her spouse at the bedside in no apparent distress. She is very pleasant and reports that her chief complaint symptoms have not returned. She has remained asymptomatic and denies any current questions or complaints, she is wanting to go home. Her vitals are been stable and labs unremarkable. General Appearance: Alert, Oriented X3, Cooperative, No acute distress HEENT: Atraumatic, PERRLA, EOMI, Mucous membr. moist/pink Respiratory: Clear to auscultation, Normal air movement Heart: Normal S1, Normal S2, No murmurs Cardiac: CAD, HTN, hyperipidemia Abdominal: Soft, No tenderness Extremities: No clubbing, No cyanosis, No edema Neuro: Normal speech, Strength at 5/5 X4 ext, Normal tone, Cranial nerves 3-12 NL Psych/Mental Status: Mental status NL, Mood NL Discharge Information Condition at Discharge: Stable Follow Up: Weeks Disposition/Orders: D/C to Home Dischare Medications Current Medications Nitroglycerin (Nitrostat) 0.4 mg PRN Q5MIN PRN SL CP RATING > 1/10 Last administered on 07/04/18at 09:30; Start 07/04/18 at 09:30; Stop 07/05/18 at 09:29 ; Status DC Lorazepam (Ativan) 0.5 mg 1X ONCE IV Last administered on 07/04/18at 10:32; Start 07/04/18 at 10:45; Stop 07/04/18 at 10:46; Status DC Lisinopril (Prinivil) 10 mg DAILY PO ; Start 07/05/18 at 09:00 Aspirin (Children'S Aspirin) 81 mg DAILY PO Last administered on 07/05/18at 11: 23; Start 07/05/18 at 09:00 Non-Formulary Medication (Fluticasone Propionate (Flovent 50MCG Diskus)) 50 mcg DAILY IH ; Start 07/05/18 at 09:00; Stop 07/05/18 at 09:00; Status DC Non-Formulary Medication (Fluticasone/ Salmeterol (Advair 250-50 Diskus)) 1 puff DAILY IH ; Start 07/05/18 at 09:00; Stop 07/05/18 at 09:00; Status DC Multivitamins/ Calcium (Thera-M Plus) 1 tab DAILY PO Last administered on at 11:23; Start 07/05/18 at 09:00 Fish Oil (Fish Oil) 1,000 mg DAILY PO Last administered on 07/05/18at 11:23; Start 07/05/18 at 09:00 Simvastatin (Zocor) 80 mg QHS PO Last administered on 07/04/18at 20:39; Start at 21:00 Budesonide (Pulmicort) 0.5 mg RTBID NEB ; Start 07/04/18 at 20:00 Albuterol Sulfate (Ventolin) 2.5 mg RTQID NEB ; Start 07/04/18 at 20:00 Fluticasone Propionate (Flonase) 2 spray DAILY NS Last administered on at 11:23; Start 07/05/18 at 09:00 Active Scripts Active Reported Flovent 50MCG Diskus (Fluticasone Propionate) 50 Mcg Disk.w.dev 50 Mcg IH DAILY LAST DOSE GIVEN: DATE: TIME: NEXT DOSE DUE: DATE: TIME: [place] 3 Fish Oil Softgel ([place]-3 Fatty Acids/Fish Oil) 1 Each Capsule.dr 1 Each PO DAILY LAST DOSE GIVEN: DATE: TIME: NEXT DOSE DUE: DATE: TIME: Multivitamins (Multivitamin) 1 Each Tablet 1 Tab PO DAILY LAST DOSE GIVEN: DATE: TIME: NEXT DOSE DUE: DATE: TIME: Advair 250-50 Diskus (Fluticasone/Salmeterol) 1 Each Disk.w.dev 1 Puff IH DAILY LAST DOSE GIVEN: DATE: TIME: NEXT DOSE DUE: DATE: TIME: Simvastatin 80 Mg Tablet 1 Tab PO QHS LAST DOSE GIVEN: DATE: TIME: NEXT DOSE DUE: DATE: TIME: Aspirin 81 Mg Tab.chew 81 Mg PO DAILY LAST DOSE GIVEN: DATE: TIME: NEXT DOSE DUE: DATE: TIME: Lisinopril 10 Mg Tablet 1 Tab PO DAILY LAST DOSE GIVEN: DATE: TIME: NEXT DOSE DUE: DATE: TIME: Problem Qualifiers (1) Chest pain: Chest pain type: other chest pain Qualified Codes: R07.89 - Other chest pain (2) Hyperlipidemia: Hyperlipidemia type: pure hypercholesterolemia Qualified Codes: E78.00 - Pure hypercholesterolemia, unspecified (3) Hypertension: Hypertension type: essential hypertension Qualified Codes: I10 - Essential ( primary) hypertension JOSEFA DIEZ DO Jul 05, 2018 15:40
--- NOTE | 2018-07-05 16:46 | NUR ---
Discharge Note: SHANT DIEGO [address] Discharge instructions and discharge home medications reviewed with patient and and a copy given. All questions have been answered and understanding verbalized. The following instructions and handouts were given: medications, follow up instructions, and educational handouts given. Discontinued lines and drains: peripheral IV discontinued with no complications. Patient discharged to home with via private vehicle.
== END 2018-07-05 16:30 | disposition home or self-care (01) ==
LOC: ER 09:08 → INTOOBSV 10:16 → 1 SOUTH 10:16
PROVIDERS: ADMIT Neuromusculoskeletal Medicine & OMM; ATTEND Neuromusculoskeletal Medicine & OMM
DX: R07.89 Other chest pain (principal); I16.0 Hypertensive urgency; E78.00 Pure hypercholesterolemia, unspecified; E78.5 Hyperlipidemia, unspecified; F41.9 Anxiety disorder, unspecified; I10 Essential (primary) hypertension; I25.10 Atherosclerotic heart disease of native coronary artery without angina pectoris; I44.7 Left bundle-branch block, unspecified; J45.909 Unspecified asthma, uncomplicated; Z82.49 Family history of ischemic heart disease and other diseases of the circulatory system; Z95.1 Presence of aortocoronary bypass graft; Z90.710 Acquired absence of both cervix and uterus; Z79.899 Other long term (current) drug therapy
CPT/HCPCS: 36415; 71045; 78452; 80053; 80061; 82550; 83690; 83735; 83880; 84484; 85025; 85610; 93005; 93017; 96374; 99285; A9500; G0378; J2060; 96376; G0379

== ENCOUNTER → 2019-02-21 | Outpatient (CLI) | payer MEDICARE ==
[~2019-02-21] MED LIST changes: +FLUT1DIS3 IH; +FLUT50DI IH; +MULT1TAB52 PO; +OMEG1CAP38 PO; +SIMV80TA17 PO
--- NOTE | 2019-02-21 16:19 | RAD ---
DATE: 02/21/2019 EXAM: MAMMO CALLI SCREENING BILATERAL HISTORY: Routine screening COMPARISON: 01/09/2018 This study was interpreted with the benefit of Computerized Aided Detection (CAD). Breast Density: HETERO The breast parenchyma is heterogenously dense, which could reduce sensitivity of mammography. Breast parenchyma level C. FINDINGS: 2-D and 3-D tomosynthesis imaging was performed in CC and MLO projections. A breast biopsy markers again noted laterally on the right. The fibroglandular tissues are quite dense and heterogeneous in the nodular pattern. There is a 2 cm smooth nodule in the medial aspect of the left breast which is unchanged. No new or enlarging breast densities are seen. There are scattered benign type calcifications. No suspicious microcalcifications have developed. IMPRESSION: Stable mammograms without evidence of malignancy. BI-RADS CATEGORY: 2 BENIGN FINDING(S) RECOMMENDED FOLLOW-UP: 12M 12 MONTH FOLLOW-UP PQRS compliance statement: Patient information was entered into a reminder system with a target due date for the next mammogram. Mammography is a sensitive method for finding small breast cancers, but it does not detect them all and is not a substitute for careful clinical examination. A negative mammogram does not negate a clinically suspicious finding and should not result in delay in biopsying a clinically suspicious abnormality. "Our facility is accredited by the [employer] Mammography Program."
== END | disposition home or self-care (01) ==
LOC: MAMMO 09:50
PROVIDERS: ATTEND Specialist
DX: Z12.31 Encounter for screening mammogram for malignant neoplasm of breast (principal); N64.89 Other specified disorders of breast
CPT/HCPCS: 77063; 77067

== ENCOUNTER → 2020-03-24 | Outpatient (CLI) | payer MEDICARE ==
[~2020-03-24] MED LIST changes: +MULT-445 PO; -MULT1TAB52 PO
--- NOTE | 2020-03-24 14:37 | RAD ---
DATE: 03/24/2020 10:55 AM EXAM: MAMMO CALLI SCREENING BILATERAL HISTORY: Screening COMPARISON: 08/01/2016, 01/09/2018 and 02/21/2019 Bilateral CC and MLO views of the breasts were performed. Bilateral breast tomosynthesis was performed in CC and MLO projections. This study was interpreted with the benefit of Computerized Aided Detection (CAD). FINDINGS: Breast Density: HETERO The breast parenchyma Is heterogeneously dense, which could reduce sensitivity of mammography. Breast parenchyma level C No suspicious masses, microcalcifications or architectural distortion is present to suggest malignancy in either breast. The visualized axillae are unremarkable. IMPRESSION: No mammographic evidence of malignancy. BI-RADS CATEGORY: 1 NEGATIVE RECOMMENDED FOLLOW-UP: 12M 12 MONTH FOLLOW-UP Annual screening mammography is recommended, unless clinically indicated sooner based on symptoms or change in physical exam. PQRS compliance statement: Patient information was entered into a reminder system with a target due date 03/25/2021 for the next mammogram. Mammography is a sensitive method for finding small breast cancers, but it does not detect them all and is not a substitute for careful clinical examination. A negative mammogram does not negate a clinically suspicious finding and should not result in delay in biopsying a clinically suspicious abnormality. "Our facility is accredited by the [employer] Mammography Program."
== END | disposition home or self-care (01) ==
LOC: MAMMO 10:43
PROVIDERS: ATTEND Specialist
DX: Z12.31 Encounter for screening mammogram for malignant neoplasm of breast (principal)
CPT/HCPCS: 77063; 77067

== ENCOUNTER → 2020-09-24 | Outpatient (CLI) | payer MEDICARE ==
--- NOTE | 2020-09-24 15:12 | RAD ---
EXAM: DUAL ENERGY X-RAY ABSORPTIOMETRY (DEXA). HISTORY: Postmenopausal screening. FINDINGS: The lowest measured T-score is -1.5 in the right total femur, based on a bone mineral densi ty of 0.771 g/cm^2. Refer to the worksheets for full detail. No comparison examinations are available. IMPRESSION: Low bone mass. Bone mineral density yields a T-score between -1.0 and -2.5. Fracture risk is increase d. FRAX was not calculated. METHODOLOGY: Dual energy x-ray absorptiometry was performed to measure bone mineral density. The foll owing analysis is based on the 2019 Official Positions of the International Society for Clinical Dens itometry: Measurements of the hips and the average of L1-L4 are preferred. When the spine and/or hip cannot be feasibly measured or interpreted, or in the setting of hyperparathyroidism, distal radial bone minera l density may be measured. The lumbar spine T-score is based on the average bone mineral density of L1-L4. In the setting of art ifact or anatomic abnormality, some lumbar levels may be excluded, and the remaining levels used for calculation. A single lumbar level is not used for diagnosis, and if only a single level is available for assessment, another anatomic site will be used to assign a diagnosis. The hip T-score is based on the bone mineral density measurement of the femoral neck or total proxima l femur of either side, whichever is lowest. Bilateral mean values are not used for diagnosis. The forearm T-score is derived from 33% of the distal radius of the nondominant forearm. For postmenopausal and perimenopausal women, and men age 50 or older, of all ethnic groups, T-scores are calculated through comparison of the current measurement with the NHANES III database standard fo r females aged 20-29 years. The lowest T-score of the evaluated anatomic sites is used to a ssign a diagnosis based on the World Health Organization densitometric classification. In premenopausal females and males younger than age 50, a Z-score is calculated based on population s pecific reference data for patient sex and self-reported ethnicity. Electronically signed by: Steve Bermudez MD (09/24/2020 3:10 PM) [id number]
== END ==
LOC: DXRAD 12:42
PROVIDERS: ATTEND Specialist
DX: M81.8 Other osteoporosis without current pathological fracture (principal); M85.9 Disorder of bone density and structure, unspecified
CPT/HCPCS: 77080

== ENCOUNTER → 2020-12-18 | Outpatient (CLI) | payer MEDICARE ==
[~2020-12-18] MED LIST changes: +LISI10TA16 PO; -LISI10TA2 PO
--- NOTE | 2020-12-18 14:49 | RAD ---
EXAM: Chest, 2 views. HISTORY: COPD. COMPARISON: 07/04/2018 FINDINGS: 2 views of the chest are obtained. There is no infiltrate, pleural effusion or pneumothorax . The heart is normal in size. There is evidence of median sternotomy and coronary artery bypass. The re is a coronary artery stent. There is a moderate hiatal hernia. IMPRESSION: No acute pulmonary finding. Electronically signed by: Stcaia Ayala MD (12/18/2020 2:47 PM) [id number]
== END ==
LOC: RAD 13:39
PROVIDERS: ATTEND Internal Medicine Critical Care Medicine
DX: J44.9 Chronic obstructive pulmonary disease, unspecified (principal); K44.9 Diaphragmatic hernia without obstruction or gangrene
CPT/HCPCS: 71046

== ENCOUNTER → 2021-03-04 | Outpatient (CLI) | payer MEDICARE ==
--- NOTE | 2021-03-04 14:57 | RAD ---
EXAM: Left knee, 3 views. HISTORY: Pain. COMPARISON: None. FINDINGS: 3 views of the left knee are obtained. There is medial compartment joint space narrowing wi th degenerative subchondral sclerosis and spurring. There is lucency along the articular aspect of th e medial femoral condyle which is likely projectional. No convincing osteochondral lesion is seen. Th ere is no significant joint effusion. IMPRESSION: 1. Moderate medial and mild lateral compartment osteoarthritis of the left knee. 2. No acute osseous finding. Electronically signed by: Stacia Ayala MD (03/04/2021 2:55 PM) [id number]
== END ==
LOC: DXRAD 14:08
PROVIDERS: ATTEND Physician Assistant
DX: M17.12 Unilateral primary osteoarthritis, left knee (principal)
CPT/HCPCS: 73562

== ENCOUNTER 2021-04-26 17:16 | Emergency (ER) | payer MEDICARE ==
[~2021-04-26] VITALS: Ht 165.1 cm; Wt 49.5 kg
[2021-04-26] MEDS ORDERED: IV NORMAL SALINE 1,000ML 1,000 ML IV ONE (18:15)
[2021-04-26 18:19] LABS: BASO # 0.1 x10^3/uL (0.0-0.2); BASO % 1 % (0-3); EOS # 0.2 x10^3/uL (0.0-0.7); EOS % 3 % (0-3); HEMATOCRIT 37.8 % (36.0-47.0); HEMOGLOBIN 12.5 g/dL (12.0-15.5); LYMPH # 1.6 x10^3/uL (1.0-4.8); LYMPH % 27 % (24-48); MEAN CORPUSCULAR HEMOGLOBIN 32 pg (25-35); MEAN CORPUSCULAR HGB CONC 33 g/dL (31-37); MEAN CORPUSCULAR VOLUME 96 fL (79-100); MONO # 0.6 x10^3/uL (0.0-1.1); MONO % 11 % (0-9); NEUT # 3.5 x10^3uL (1.8-7.7); NEUT % 58 % (31-73); PLATELET COUNT 263 x10^3/uL (140-400); RED BLOOD COUNT 3.95 x10^6/uL (3.50-5.40); RED CELL DISTRIBUTION WIDTH 14.3 % (11.5-14.5)
--- NOTE | 2021-04-26 18:20 | EKG ---
[address] [address] Test Date: 2021-04-26 Test Time: 18:12:55 Pat Name: SHANT DIEGO Department: Room: Gender: F [employer] Specialist: NORA : 1945 Requested By: KYLE JACINTO Order Number: [id number] Reading MD: Measurements Intervals Carpenter Rate: 62 P: 23 DE: 162 QRS: -2 QRSD: 128 T: 86 QT: 478 QTc: 488 Interpretive Statements SINUS RHYTHM LEFTWARD AXIS LEFT BUNDLE BRANCH BLOCK ABNORMAL ECG RI6.02 No previous ECG available for comparison
[2021-04-26 18:24] LABS: BILIRUBIN,URINE NEG (NEG); CLARITY,URINE CLEAR; COLOR,URINE YELLOW; GLUCOSE,URINE NEG (NEG)
[2021-04-26 18:25] LABS: NITRITE,URINE NEG (NEG); UROBILINOGEN,URINE 0.2 mg/dL (0.2 mg/dL)
[2021-04-26 18:27] LABS: BACTERIA,URINE FEW /HPF (0-FEW); RBC,URINE OCC /HPF (0-2); SQUAMOUS EPITHELIAL CELL,UR OCC /LPF
[2021-04-26 18:28] LABS: HYALINE CASTS, URINE MOD /HPF
[2021-04-26 18:31] LABS: CALCIUM 8.5 mg/dL (8.5-10.1); CREATININE 1.1 mg/dL (0.6-1.0); GFR 48.2; POTASSIUM 3.5 mmol/L (3.5-5.1)
[2021-04-26 18:37] LABS: ALBUMIN 3.6 g/dL (3.4-5.0); ALBUMIN/GLOBULIN RATIO 1.3 (1.0-1.7); TOTAL BILIRUBIN 0.3 mg/dL (0.2-1.0); TOTAL PROTEIN 6.3 g/dL (6.4-8.2)
[2021-04-26] MEDS ORDERED: FOSFOMYCIN TROMETHAMINE 3 GM PACKET PO ONE (19:00)
--- NOTE | 2021-04-26 19:43 | PHYS DOC ---
Past History Past Medical History: Asthma, CAD, High Cholesterol, Hypertension (KYLE JACINTO APRN) Past Surgical History: Coronary Bypass Surgery, Hysterectomy (KYLE JACINTO APRN) Alcohol Use: Occasionally Drug Use: None (KYLE JACINTO APRN) General Adult EDM: Chief Complaint: HYPOTENSION HPI: HPI: Patient is a 75-year-old female who presents with hypotension. Patient states "when I got up from a nap I took my blood pressure and it was low". "My has been to my blood pressure with 2 different machines at home and they both were running low in the 70s". states "now that I am thinking about it, on Monday she acted weird and has had some memory issues since then ". "She got up and said that everything looked weird and felt like the lights were very bright and her balance was off". Patient denies chest pain, shortness of breath. (KYLE JACINTO APRN) Review of Systems: Review of Systems: Constitutional: Denies fever or chills Eyes: Denies change in visual acuity HENT: Denies nasal congestion or sore throat Respiratory: Denies cough or shortness of breath Cardiovascular: Denies chest pain or edema GI: Denies abdominal pain, nausea, vomiting, bloody stools or diarrhea : Denies dysuria Musculoskeletal: Denies back pain or joint pain Integument: Denies rash Neurologic: Denies headache, focal weakness or sensory changes Endocrine: Denies polyuria or polydipsia Lymphatic: Denies swollen glands Psychiatric: Denies depression or anxiety (KYLE JACINTO APRN) Current Medications: Current Meds: Current Medications Medications (Trade) Dose Ordered Sig/Idania Start Time Stop Time Status Last Admin Dose Admin Fosfomycin Tromethamine (Monurol) 3 gm 1X ONCE 04/26/21 19:00 04/26/21 19:01 DC 04/26/21 19:13 3 GM Sodium Chloride 1,000 ml @ 1,000 mls/hr 1X ONCE 04/26/21 18:15 04/26/21 19:14 DC 04/26/21 18:08 1,000 MLS/HR (KYLE JACINTO APRN) Allergies: Allergies: Allergies Coded Allergies Type Severity Reaction Last Updated Verified No Known Drug Allergies 01/11/17 No (KYLE JACINTO APRN) Physical Exam: PE: Constitutional: Well developed, well nourished, no acute distress, non-toxic appearance. [] HENT: Normocephalic, atraumatic, bilateral external ears normal, oropharynx moist, no oral exudates, nose normal. [] Eyes: PERRLA, EOMI, conjunctiva normal, no discharge. [] Neck: Normal range of motion, no tenderness, supple, no stridor. [] Cardiovascular:Heart rate regular rhythm, no murmur [] Lungs & Thorax: Bilateral breath sounds clear to auscultation [] Abdomen: Bowel sounds normal, soft, no tenderness, no masses, no pulsatile masses. [] Skin: Warm, dry, no erythema, no rash. [] Back: No tenderness, no CVA tenderness. [] Extremities: No tenderness, no cyanosis, no clubbing, ROM intact, no edema. [] Neurologic: Alert and oriented X 3, normal motor function, normal sensory function, no focal deficits noted. [] Psychologic: Affect normal, judgement normal, mood normal. [] (KYLE JACINTO APRN) Current Patient Data: Labs: Laboratory Tests Test 04/26/21 17:58 04/26/21 18:00 Urine Collection Type Unknown Urine Color Yellow Urine Clarity Clear Urine pH 5.5 Urine Specific [place] 1.015 Urine Protein Neg (NEG-TRACE) Urine Glucose (UA) Neg mg/dL (NEG) Urine Ketones (Stick) Neg mg/dL (NEG) Urine Blood Trace (NEG) Urine Nitrite Neg (NEG) Urine Bilirubin Neg (NEG) Urine Urobilinogen Dipstick 0.2 mg/dL (0.2 mg/dL) Urine Leukocyte Esterase Small (NEG) Urine RBC Occ /HPF (0-2) Urine WBC 5-10 /HPF (0-4) Urine Squamous Epithelial Cells Occ /LPF Urine Transitional Epithelial Cells Occ /LPF Urine Renal Epithelial Cells Few /LPF Urine Bacteria Few /HPF (0-FEW) Urine Hyaline Casts Mod /HPF White Blood Count 6.0 x10^3/uL (4.0-11.0) Red Blood Count 3.95 x10^6/uL (3.50-5.40) Hemoglobin 12.5 g/dL (12.0-15.5) Hematocrit 37.8 % (36.0-47.0) Mean Corpuscular Volume 96 fL (79-100) Mean Corpuscular Hemoglobin 32 pg (25-35) Mean Corpuscular Hemoglobin Concent 33 g/dL (31-37) Red Cell Distribution Width 14.3 % (11.5-14.5) Platelet Count 263 x10^3/uL (140-400) Neutrophils (%) (Auto) 58 % (31-73) Lymphocytes (%) (Auto) 27 % (24-48) Monocytes (%) (Auto) 11 % (0-9) H Eosinophils (%) (Auto) 3 % (0-3) Basophils (%) (Auto) 1 % (0-3) Neutrophils # (Auto) 3.5 x10^3uL (1.8-7.7) Lymphocytes # (Auto) 1.6 x10^3/uL (1.0-4.8) Monocytes # (Auto) 0.6 x10^3/uL (0.0-1.1) Eosinophils # (Auto) 0.2 x10^3/uL (0.0-0.7) Basophils # (Auto) 0.1 x10^3/uL (0.0-0.2) Sodium Level 144 mmol/L (136-145) Potassium Level 3.5 mmol/L (3.5-5.1) Chloride Level 107 mmol/L (98-107) Carbon Dioxide Level 23 mmol/L (21-32) Anion Gap 14 (6-14) Blood Urea Nitrogen 10 mg/dL (7-20) Creatinine 1.1 mg/dL (0.6-1.0) H Estimated GFR (Cockcroft-Gault) 48.2 BUN/Creatinine Ratio 9 (6-20) Glucose Level 140 mg/dL (70-99) H Calcium Level 8.5 mg/dL (8.5-10.1) Total Bilirubin 0.3 mg/dL (0.2-1.0) Aspartate Amino Transferase (AST) 29 U/L (15-37) Alanine Aminotransferase (ALT) 34 U/L (14-59) Alkaline Phosphatase 79 U/L (46-116) Troponin I Quantitative < 0.017 ng/mL (0-0.055) Total Protein 6.3 g/dL (6.4-8.2) L Albumin 3.6 g/dL (3.4-5.0) Albumin/Globulin Ratio 1.3 (1.0-1.7) Vital Signs: Vital Signs Date Time Temp Pulse Resp B/P (MAP) Pulse Ox O2 Delivery O2 Flow Rate FiO2 04/26/21 17:35 98.4 72 24 121/54 (76) 98 Room Air (KYLE JACINTO APRN) EKG: EKG: Sinus rhythm. Heart rate 62 bpm. [] (KYLE JACINTO APRN) Radiology/Procedures: Radiology/Procedures: [] [facility] Compliance Statement: One or more of the following individualized dose reduction techniques were utilized for this examination: 1. Automated exposure control 2. Adjustment of the mA and/or kV according to patient size 3. Use of iterative reconstruction technique CT head without contrast 04/26/2021 8:02 PM INDICATION: Dizziness COMPARISON: None available TECHNIQUE: Multiple axial CT images of the head were obtained from skull base through the vertex without intravenous contrast. FINDINGS: Head: Ventricles, sulci and basal cisterns are within normal limits. There is no hydrocephalus. Bhakta-white matter differentiation is normal. There is no acute intracranial hemorrhage. There is no mass, mass effect or midline shift. Posterior fossa is normal in appearance. Visualized portions of the orbits are normal with exception of bilateral lens replacement. Mild mucosal thickening of the ethmoid air cells. Mastoid air cells are well aerated. Scalp and calvaria are normal. IMPRESSION: No acute intracranial hemorrhage. Electronically signed by: Senia Rome MD (04/26/2021 8:19 PM) [facility] (KYLE JACINTO APRN) Heart Score: C/O Chest Pain: No Risk Factors: Risk Factors: DM, Current or recent (<one month) smoker, HTN, HLP, family history of CAD, obesity. Risk Scores: Score 0 - 3: 2.5% MACE over next 6 weeks - Discharge Home Score 4 - 6: 20.3% MACE over next 6 weeks - Admit for Clinical Observation Score 7 - 10: 72.7% MACE over next 6 weeks - Early Invasive Strategies (KYLE JACINTO APRN) Course & Med Decision Making: Course & Med Decision Making Pertinent Labs and Imaging studies reviewed. (See chart for details) [] Patient is 75-year-old female presents with hypotension. reports patient had 2 episodes today of dizziness and being "off". Patient denies any symptoms at this time. All labs are unremarkable. Troponin is negative. EKG was unremarkable. UA is positive for infection. Patient given fosfomycin in the emergency room to treat. CT of head ordered to rule out intracranial bleeding or any acute abnormalities. CT head was negative for intracranial bleeding or acute abnormalities. Patient most likely experienced orthostatic hypotension. Discussed and educated patient on changing positions slowly. Advised patient that she needs to call her PCP to make a follow-up appointment for the morning. Patient states that she will call To schedule appointment for the morning. Patient is denying any pain, dizziness, shortness of breath or any other complaints at this time. Patient is alert and oriented. Patient is hemodynamically stable and blood pressure has been within normal range since she arrived in the emergency room. (KYLE JACINTO APRN) Dragon Disclaimer: Dragon Disclaimer: This electronic medical record was generated, in whole or in part, using a voice recognition dictation system. (KYLE JACINTO APRN) Departure Departure: Impression: Primary Impression: Orthostatic hypotension Disposition: 01 HOME / SELF CARE / HOMELESS Condition: STABLE Referrals: NEERAJ JOHNSON MD (PCP) Patient Instructions: Orthostatic Hypotension Additional Instructions: You are seen in the emergency room for dizziness and hypotension. All of your labs are unremarkable, CT of your head was negative. Your urine was positive f or infection. You were given antibiotic while in the ER to treat UTI. Please call your physician and make an appointment for the morning for a follow-up. EMERGENCY DEPARTMENT GENERAL DISCHARGE INSTRUCTIONS Thank you for coming to [facility] (ED) today and trusting us with you care. We trust that you had a positivie experience in our Emergency Department. If you wish to speak to the department management, you may call the director at [phone]. YOUR FOLLOW UP INSTRUCTIONS ARE FOLLOWS: 1. Do you have a private Doctor? If you do not have a private doctor, please ask for a resource list of physicians or clinics that may be able to assist you with follow up care. 2. The Emergency Physician has interpreted your x-rays. The X-Ray specialist will also review them. If there is a change in the findings, you will be notified in 48 hours when at all possible. 3. A lab test or culture has been done, your results will be reviewed and you will be notified if you need a change in treatment. ADDITIONAL INSTRUCTIONS AND INFORMATION: 1. Your care today has been supervised by a physician who is specially trained in emergency care. Many problems require more than one evaluation for a complete diagnosis and treatment. We recommend that you schedule your follow up appointment as recommended to ensure complete treatment of you illness or injury. If you are unable to obtain follow up care and continue to have a problem, or if your condition worsens, we recommend that you return to the ED. 2. We are not able to safely determine your condition over the phone nor are we able to give sound medical advice over the phone. For these safety reasons, if you call for medical advice we will ask you to come to the ED for further evaluation. 3. If you have any questions regarding these discharge instructions please call the ED at [phone]. SAFETY INFORMATION: In the interest of safety, wellness, and injury prevention; we encourage you to wear your sealbelt, if you smoke; quite smoking, and we encourage family to use a protective helmet for bicycling and other sporting events that present an increased risk for head injury. IF YOUR SYMPTOMS WORSEN OR NEW SYMPTOMS DEVELOP, OR YOU HAVE CONCERNS ABOUT YOUR CONDITION; OR IF YOUR CONDITION WORSENS WHILE YOU ARE WAITING FOR YOUR FOLLOW UP APPOINTMENT; EITHER CONTACT YOUR PRIMARY CARE DOCTOR, THE PHYSICIAN WHOSE NAME AND NUMBER YOU WERE GIVEN, OR RETURN TO THE ED IMMEDIATELY. Attending Signature Attending Signature I have participated in the care of this patient and I have reviewed and agree with all pertinent clinical information above including history, exam, and recommendations. (BRIDGET BRAY MD) KYLE JACINTO APRN Apr 26, 2021 19:43 BRIDGET BRAY MD Apr 29, 2021 07:02
--- NOTE | 2021-04-26 20:21 | RAD ---
[facility] Compliance Statement: One or more of the following individualized dose reduction techniques were utilized for this examinat ion: 1. Automated exposure control 2. Adjustment of the mA and/or kV according to patient size 3. Use of iterative reconstruction technique CT head without contrast 04/26/2021 8:02 PM INDICATION: Dizziness COMPARISON: None available TECHNIQUE: Multiple axial CT images of the head were obtained from skull base through the vertex with out intravenous contrast. FINDINGS: Head: Ventricles, sulci and basal cisterns are within normal limits. There is no hydrocephalus. Bhakta-white matter differentiation is normal. There is no acute intracranial hemorrhage. There is no mass, mass e ffect or midline shift. Posterior fossa is normal in appearance. Visualized portions of the orbits are normal with exception of bilateral lens replacement. Mild mucos al thickening of the ethmoid air cells. Mastoid air cells are well aerated. Scalp and calvaria are no rmal. IMPRESSION: No acute intracranial hemorrhage. Electronically signed by: Senia Rome MD (04/26/2021 8:19 PM) [facility]
[2021-04-26 21:06] VITALS: BP 141/61
== END 2021-04-26 21:22 | disposition home or self-care (01) ==
LOC: ER 17:16
DX: I95.1 Orthostatic hypotension (principal); J45.909 Unspecified asthma, uncomplicated; I25.810 Atherosclerosis of coronary artery bypass graft(s) without angina pectoris; E78.00 Pure hypercholesterolemia, unspecified; I10 Essential (primary) hypertension
CPT/HCPCS: 36415; 70450; 80053; 81001; 84484; 85025; 87086; 93005; 96360; 99285; J7030

== ENCOUNTER 2021-11-14 18:37 | Emergency (ER) | payer MEDICARE ==
[~2021-11-14] VITALS: Ht 165.1 cm; Wt 49.5 kg
[2021-11-14 18:52] VITALS: BP 119/61
--- NOTE | 2021-11-14 18:58 | PHYS DOC ---
Past History Past Medical History: Asthma, CAD, High Cholesterol, Hypertension (ZAIN ZARATE APRN) Past Surgical History: Coronary Bypass Surgery, Hysterectomy (ZAIN ZARATE APRN) Alcohol Use: Occasionally Drug Use: None (ZAIN ZARATE APRN) Adult General Chief Complaint Chief Complaint: ANXIETY/PANIC ATTACK HPI HPI Patient is a 76-year-old female who presents to the emergency department with at bedside who reports she is has a history of Alzheimer's dementia, complaints noting a mental status change at approximately 1400 today in which she started complaining that she cannot remember things, then took a nap shortly afterwards woke up with pickups, started crying and having increased agitation stating over and over again that she cannot remember anything. Patient denies headaches, chest pain, shortness of breath, abdominal pain, nausea, denies other physical complaints or physical concerns. (ZAIN ZARATE APRN) Review of Systems Review of Systems 14 body systems of review of systems have been reviewed. See HPI for pertinent positives and negative responses, otherwise all other systems are negative, nonpertinent or noncontributory. Constitutional: Negative except as outlined in HPI above. Skin: Negative except as outlined in HPI above. Eyes: Negative except as outlined in HPI above. HENT: Negative except as outlined in HPI above. Respiratory: Negative except as outlined in HPI above. Cardiovascular: Negative except as outlined in HPI above. GI: Negative except as outlined in HPI above. : Negative except as outlined in HPI above. Musculoskeletal: Negative except as outlined in HPI above. Integument: Negative except as outlined in HPI above. Neurologic: Negative except as outlined in HPI above. Endocrine: Negative except as outlined in HPI above. Lymphatic: Negative except as outlined in HPI above. Psychiatric: Negative except as outlined in HPI above. (ZAIN ZARATE APRN) Allergies Allergies Allergies Coded Allergies Type Severity Reaction Last Updated Verified No Known Drug Allergies 01/11/17 No (ZAIN ZARATE APRN) Physical Exam Physical Exam Constitutional: Well developed, well nourished, no acute distress, non-toxic appearance. Patient crying out she cannot remember anything however is easily redirected and answers all questions during physical exam appropriately, then returns to crying out that she cannot remember anything. HENT: Normocephalic, atraumatic. Oropharynx moist, pink, no deep tissue infection process appreciated, no lymphadenopathy of head appreciated. Eyes: Conjunctiva normal, no discharge. Neck: Normal range of motion, no stridor. Cardiovascular: No cyanosis appreciated, distal cap refill less than 2 seconds. Heart sounds S1-S2 dilatation, regular rate and rhythm. Lungs & Thorax: Patient is in no respiratory distress, no audible adventitious lung sounds appreciated. Lung sounds clear to auscultate all lung cee. Abdomen: Nontender, no abnormalities noted. Skin: Warm, dry, no erythema, no rash. Back: No tenderness, no deformities. Extremities: No tenderness, no cyanosis, no clubbing, ROM intact, no edema. Neurologic: Alert and oriented to self only, normal motor function, normal sensory function, no focal deficits noted. Patient is tearful and crying, repeatedly saying "I cannot remember anything ". Patient stops this process immediately when asked questions, answers all questions appropriately in a normal tone of voice, with examination is completed patient returns to a tearful and crying state repeatedly saying "I cannot remember anything ". Psychologic: Affect normal, judgement normal, mood normal. (ZAIN ZARATE APRN) Current Patient Data Lab Results Laboratory Tests Test 11/14/21 19:11 White Blood Count 6.0 x10^3/uL Red Blood Count 3.93 x10^6/uL Hemoglobin 12.6 g/dL Hematocrit 38.2 % Mean Corpuscular Volume 97 fL Mean Corpuscular Hemoglobin 32 pg Mean Corpuscular Hemoglobin Concent 33 g/dL Red Cell Distribution Width 13.7 % Platelet Count 245 x10^3/uL Neutrophils (%) (Auto) 54 % Lymphocytes (%) (Auto) 35 % Monocytes (%) (Auto) 8 % Eosinophils (%) (Auto) 2 % Basophils (%) (Auto) 1 % Neutrophils # (Auto) 3.2 x10^3uL Lymphocytes # (Auto) 2.1 x10^3/uL Monocytes # (Auto) 0.5 x10^3/uL Eosinophils # (Auto) 0.1 x10^3/uL Basophils # (Auto) 0.1 x10^3/uL Urine Collection Type Clean catch Urine Color Yellow Urine Clarity Clear Urine pH 6.0 Urine Specific [place] <=1.005 Urine Protein Neg Urine Glucose (UA) Neg mg/dL Urine Ketones (Stick) Neg mg/dL Urine Blood Neg Urine Nitrite Neg Urine Bilirubin Neg Urine Urobilinogen Dipstick 0.2 mg/dL Urine Leukocyte Esterase Neg Urine RBC 0 /HPF Urine WBC 0 /HPF Urine Squamous Epithelial Cells Occ /LPF Urine Bacteria 0 /HPF Sodium Level 146 mmol/L Potassium Level 3.6 mmol/L Chloride Level 110 mmol/L Carbon Dioxide Level 17 mmol/L Anion Gap 19 Blood Urea Nitrogen 17 mg/dL Creatinine 1.1 mg/dL Estimated GFR (Cockcroft-Gault) 48.0 BUN/Creatinine Ratio 15 Glucose Level 90 mg/dL Calcium Level 8.6 mg/dL Total Bilirubin 0.1 mg/dL Aspartate Amino Transf (AST/SGOT) 40 U/L Alanine Aminotransferase (ALT/SGPT) 38 U/L Alkaline Phosphatase 74 U/L Troponin I High Sensitivity 6 ng/L Total Protein 6.1 g/dL Albumin 3.3 g/dL Albumin/Globulin Ratio 1.2 Current Medications Medications (Trade) Dose Ordered Sig/Idania Route PRN Reason Start Time Stop Time Status Last Admin Dose Admin Midazolam HCl (Versed) 2.5 mg 1X ONCE IM 11/14/21 19:00 11/14/21 19:02 DC 11/14/21 19:08 (ZAIN ZARATE APRN) EKG EKG EKG performed at 1912 ED nursing staff shows a normal sinus rhythm with left bundle branch block, heart rate 71 bpm, PA interval 0.142, QTc interval 0.493, no acute STEMI, no ACS, no acute ischemia appreciated, negative for sgarbossas criteria for [place], EKG interpreted by ED attending physician Dr. Maldonado. (ZAIN ZARATE APRN) Radiology/Procedures Radiology/Procedures REASON: Altered mental status, anxiety PROCEDURE: CHEST AP ONLY Exam: Chest one view INDICATION: Altered mental status TECHNIQUE: Frontal view of the chest Comparisons: 12/18/2020 FINDINGS: The cardiomediastinal silhouette and pulmonary vessels are within normal limits. The lung and pleural spaces are clear. Moderate-sized hiatal hernia. IMPRESSION: No acute cardiopulmonary process. Electronically signed by: Glenn Trammell MD (11/14/2021 8:57 PM) JONATHAN REASON: Altered mental status, fatigue, anxiety PROCEDURE: CT HEAD WO CONTRAST Exam: CT head INDICATION: Altered mental status TECHNIQUE: Sequential axial images through the head were obtained without the administration of IV contrast. Exposure: One or more of the following in the visualized dose reduction techniques were utilized for this examination: 1. Automated exposure control 2. Adjustment of the MA and/or KV according to patient size 3. Use of iterative of reconstructive technique Comparisons: None FINDINGS: No focal parenchymal lesion or hemorrhage is identified. There is no midline shift or sulcal effacement. No acute vascular territory infarction is identified. Bhakta-white distinction is preserved. The ventricular system is within normal limits without compression hydrocephalus. The basal cisterns are well maintained. The visualized portions of the paranasal sinuses and mastoid air cells are well- pneumatized. No acute fractures. IMPRESSION: No acute intracranial abnormality. Electronically signed by: Glenn Trammell MD (11/14/2021 7:38 PM) [facility] (ZAIN ZARATE APRN) Heart Score C/O Chest Pain: No Risk Factors: Risk Factors: DM, Current or recent (<one month) smoker, HTN, HLP, family history of CAD, obesity. Risk Scores: Risk Factors: DM, Current or recent (<one month) smoker, HTN, HLP, family history of CAD, obesity. (ZAIN ZAARTE APRN) Course & Med Decision Making Course & Med Decision Making Pertinent Labs and Imaging studies reviewed. (See chart for details) patien 76-year-old female, vital signs reviewed, resents emerged from concerning mental status changes at home. Patient has a history of Alzheimer's dementia, patient's physical examination is unremarkable, patient is easily redirected however returns back to a anxiety type state when not having questions recta towards her. Will order Versed for muscular for anxiolytic, chest x-ray, EKG, CT head without contrast, CBC, CMP, troponin I, urinalysis assay. Patient's labs are unremarkable, the patient's urine is not infected, CT head without contrast and chest x-ray nonconcerning, upon reevaluation of the patient, patient has remained calm and cooperative without yelling episodes or altered mental status episodes since receiving the anxiolytic Versed medication. Discussed with patient's calling primary care physician first thing tomorrow morning to discuss further treatment for dementia outbreaks, discussed possible home health visits or detention placement, patient's is amenable to ED planning stating he will call Dr. Johnson tomorrow first thing. Discussed return to ER precautions or concerns. Patient gave verbal understanding of and is amendable to ED discharge planning. Discussed with the patient and patient's all findings and diagnostic testing as well as the need to follow-up with their primary care provider for further evaluation and treatment or return to the ED if any new or worsening symptoms. Strict return precautions were also discussed at length, the patient voiced understanding and agreement with the discharge planning. The patient was nontoxic in appearance, in no apparent distress, and hemodynamically stable at the time of disposition. (ZAIN ZARATE APRN) Course & Med Decision Making Did not see or evaluate patient. Did not discuss patient with BAG GRADER. Agree with BAG GRADER's work-up and disposition per note. (PEDRO MALDONADO MD) Dragon Disclaimer Dragon Disclaimer This electronic medical record was generated, in whole or in part, using a voice recognition dictation system. (ZAIN ZARATE APRN) Departure Departure: Impression: Primary Impression: Alzheimer's dementia with behavioral disturbance Disposition: 01 HOME / SELF CARE / HOMELESS Condition: GOOD Referrals: NEERAJ JOHNSON MD (PCP) Additional Instructions: Your was seen today in the emergency department for an acute behavioral disturbance related to her Alzheimer's dementia. She was given an anxiolytic Versed to help with her symptoms. A CT head, chest x-ray, urinalysis assay, and lab work were performed today in the emergency department. There were no concer jeremy findings that would require admission to the hospital or intervention by a medical imaging tech. As we discussed, please call Dr. Johnson first thing tomorrow morning to discuss today's behavioral disturbance. Discuss with your doctor about possible home health visits or possible detention placement to assist you with her Alzheimer's dementia with behavioral disturbance outbreaks. Return to the emergency department for worsening symptoms or other concerns. Thank you for visiting our Emergency Department. It was a pleasure taking care of you today in the emergency department and we appreciate you trusting us with your care. If any additional problems come up don't hesitate to return to visit us. Please follow up with your primary care provider so they can plan additional care if needed and know about the problem that you had. If symptoms worsen come back to the Emergency Department. Any concerning symptoms that start such as chest pain, shortness of air, weakness or numbness on one side of the body, running high fevers or any other concerning symptoms return to the ER. EMERGENCY DEPARTMENT GENERAL DISCHARGE INSTRUCTIONS Thank you for coming to [facility] (ED) today and trusting us with you care. We trust that you had a positivie experience in our Emergency Department. If you wish to speak to the department management, you may call the director at . YOUR FOLLOW UP INSTRUCTIONS ARE FOLLOWS: 1. Do you have a private Doctor? If you do not have a private doctor, please ask for a resource list of physicians or clinics that may be able to assist you with follow up care. 2. The Emergency Physician has interpreted your x-rays. The X-Ray specialist will also review them. If there is a change in the findings, you will be notified in 48 hours when at all possible. 3. A lab test or culture has been done, your results will be reviewed and you will be notified if you need a change in treatment. ADDITIONAL INSTRUCTIONS AND INFORMATION: 1. Your care today has been supervised by a physician who is specially trained in emergency care. Many problems require more than one evaluation for a complete diagnosis and treatment. We recommend that you schedule your follow up appointment as recommended to ensure complete treatment of you illness or injury. If you are unable to obtain follow up care and continue to have a problem, or if your condition worsens, we recommend that you return to the ED. 2. We are not able to safely determine your condition over the phone nor are we able to give sound medical advice over the phone. For these safety reasons, if you call for medical advice we will ask you to come to the ED for further evaluation. 3. If you have any questions regarding these discharge instructions please call the ED at [phone]. SAFETY INFORMATION: In the interest of safety, wellness, and injury prevention; we encourage you to wear your sealbelt, if you smoke; quite smoking, and we encourage family to use a protective helmet for bicycling and other sporting events that present an increased risk for head injury. IF YOUR SYMPTOMS WORSEN OR NEW SYMPTOMS DEVELOP, OR YOU HAVE CONCERNS ABOUT YOUR CONDITION; OR IF YOUR CONDITION WORSENS WHILE YOU ARE WAITING FOR YOUR FOLLOW UP APPOINTMENT; EITHER CONTACT YOUR PRIMARY CARE DOCTOR, THE PHYSICIAN WHOSE NAME AND NUMBER YOU WERE GIVEN, OR RETURN TO THE ED IMMEDIATELY. Problem Qualifiers Primary Impression: Alzheimer's dementia with behavioral disturbance Alzheimer's disease onset: unspecified onset Qualified Codes: G30.9 - Alzheimer's disease, unspecified; F02.81 - Dementia in other diseases classified elsewhere with behavioral disturbance ZAIN ZARATE APRN Nov 14, 2021 18:58 PEDRO MALDONADO MD Nov 14, 2021 21:36
[2021-11-14] MEDS ORDERED: MIDAZOLAM HCL PF 5 MG/5 ML VIAL. IM ONE (19:00)
[2021-11-14 19:38] LABS: BASO # 0.1 x10^3/uL (0.0-0.2); BASO % 1 % (0-3); EOS # 0.1 x10^3/uL (0.0-0.7); EOS % 2 % (0-3); HEMATOCRIT 38.2 % (36.0-47.0); HEMOGLOBIN 12.6 g/dL (12.0-15.5); LYMPH # 2.1 x10^3/uL (1.0-4.8); LYMPH % 35 % (24-48); MEAN CORPUSCULAR HEMOGLOBIN 32 pg (25-35); MEAN CORPUSCULAR HGB CONC 33 g/dL (31-37); MEAN CORPUSCULAR VOLUME 97 fL (79-100); MONO # 0.5 x10^3/uL (0.0-1.1); MONO % 8 % (0-9); NEUT # 3.2 x10^3uL (1.8-7.7); NEUT % 54 % (31-73); PLATELET COUNT 245 x10^3/uL (140-400); RED BLOOD COUNT 3.93 x10^6/uL (3.50-5.40); RED CELL DISTRIBUTION WIDTH 13.7 % (11.5-14.5)
--- NOTE | 2021-11-14 19:40 | RAD ---
Exam: CT head INDICATION: Altered mental status TECHNIQUE: Sequential axial images through the head were obtained without the administration of IV co ntrast. Exposure: One or more of the following in the visualized dose reduction techniques were utilized for this examination: 1. Automated exposure control 2. Adjustment of the MA and/or KV according to patient size 3. Use of iterative of reconstructive technique Comparisons: None FINDINGS: No focal parenchymal lesion or hemorrhage is identified. There is no midline shift or sulcal effaceme nt. No acute vascular territory infarction is identified. Bhakta-white distinction is preserved. The ventricular system is within normal limits without compression hydrocephalus. The basal cisterns are well maintained. The visualized portions of the paranasal sinuses and mastoid air cells are well-pneumatized. No acute fractures. IMPRESSION: No acute intracranial abnormality. Electronically signed by: Glenn Trammell MD (11/14/2021 7:38 PM) JONATHAN
[2021-11-14 19:48] LABS: BACTERIA,URINE 0 /HPF (0-FEW); BILIRUBIN,URINE NEG (NEG); CLARITY,URINE CLEAR; COLOR,URINE YELLOW; GLUCOSE,URINE NEG (NEG); NITRITE,URINE NEG (NEG); RBC,URINE 0 /HPF (0-2); UROBILINOGEN,URINE 0.2 mg/dL (0.2 mg/dL); WBC,URINE 0 /HPF (0-4)
[2021-11-14 19:49] LABS: SQUAMOUS EPITHELIAL CELL,UR OCC /LPF
[2021-11-14 19:51] LABS: CALCIUM 8.6 mg/dL (8.5-10.1); CREATININE 1.1 mg/dL (0.6-1.0); POTASSIUM 3.6 mmol/L (3.5-5.1)
[2021-11-14 19:53] LABS: ALBUMIN 3.3 g/dL (3.4-5.0); ALBUMIN/GLOBULIN RATIO 1.2 (1.0-1.7); TOTAL BILIRUBIN 0.1 mg/dL (0.2-1.0); TOTAL PROTEIN 6.1 g/dL (6.4-8.2)
--- NOTE | 2021-11-14 20:59 | RAD ---
Exam: Chest one view INDICATION: Altered mental status TECHNIQUE: Frontal view of the chest Comparisons: 12/18/2020 FINDINGS: The cardiomediastinal silhouette and pulmonary vessels are within normal limits. The lung and pleural spaces are clear. Moderate-sized hiatal hernia. IMPRESSION: No acute cardiopulmonary process. Electronically signed by: Glenn Trammell MD (11/14/2021 8:57 PM) JONATHAN
--- NOTE | 2021-11-14 22:00 | EKG ---
[facility] [id number] [place] [address] Test Date: 2021-11-14 Test Time: 19:12:04 Pat Name: SHANT DIEGO Department: Room: Gender: F Vinyl Dipper: NITIN : 1945 Requested By: ZAIN ZARATE Order Number: [id number] Reading MD: Julien Martinez Measurements Intervals [place] Rate: 71 P: 48 VA: 142 QRS: -4 QRSD: 124 T: 91 QT: 454 QTc: 493 Interpretive Statements SINUS RHYTHM LEFT ATRIAL ABNORMALITY LEFTWARD AXIS LOW LIMB LEAD VOLTAGE LEFT BUNDLE BRANCH BLOCK Electronically Signed On 11-15-2021 11:32:34 [employer] by Julien Martinez
== END 2021-11-14 21:25 | disposition home or self-care (01) ==
LOC: ER 18:37
DX: G30.9 Alzheimer's disease, unspecified (principal); F02.81 Dementia in other diseases classified elsewhere, unspecified severity, with behavioral disturbance; J45.909 Unspecified asthma, uncomplicated; E78.00 Pure hypercholesterolemia, unspecified; I10 Essential (primary) hypertension; I25.810 Atherosclerosis of coronary artery bypass graft(s) without angina pectoris
CPT/HCPCS: 36415; 70450; 71045; 80053; 81001; 84484; 85025; 87040; 93005; 96372; 99285; J2250